=== PATIENT | male | born 1990 | race Hispanic/Latino ===

== ENCOUNTER 2022-05-27 16:05 | Emergency (ER) | payer SELFPAY | END 2022-05-27 17:12 | disposition home or self-care (01) | LOC: ERS 16:05 | DX: R07.89 Other chest pain (principal) | CPT/HCPCS: 71045; 93005 ==

== ENCOUNTER 2023-07-26 07:46 | Outpatient (CLI) | payer BC ==
[2023-07-26] MEDS ORDERED: Iopamidol 370 76% 100 ML VIAL ONE (09:48)
== END 2023-07-26 07:47 | disposition home or self-care (01) ==
LOC: CT 07:46
PROVIDERS: ATTEND Nurse Practitioner Family
DX: I70.90 Unspecified atherosclerosis (principal)
CPT/HCPCS: Q9967